=== PATIENT | female | born 1980 | race Caucasian/White ===

== ENCOUNTER 2017-01-07 05:56 | Inpatient (IN) ==
[2017-01-07] MEDS ORDERED: LIDOCAINE 1% (10mg/ml) 2mL INJ PF SDV ID PRN (06:04)
[2017-01-07] MEDS ORDERED: METHYLERGONOVINE 0.2 MG/ML INJECTION IM PRN (06:04)
[2017-01-07] MEDS ORDERED: MAG-AL + SIM ORAL LIQUID 30ml PO PRN (06:04)
[2017-01-07] MEDS ORDERED: D5LR 1,000 ML IV PRN ×2 (06:04→06:08)
[2017-01-07] MEDS ORDERED: CALCIUM CARBONATE Chewable 500mg TABLET PO PRN ×2 (06:04→15:43)
[2017-01-07] MEDS ORDERED: CARBOPROST 250 MCG/ML INJECTION IM PRN (06:04)
[2017-01-07] MEDS ORDERED: ACETAMINOPHEN 500 MG TABLET PO PRN ×2 (06:04→15:43)
[2017-01-07] MEDS ORDERED: OXYTOCIN DRIP 30 UNIT/500 ML ML IV PRN (06:08)
[2017-01-07 06:39] VITALS: BMI 30.2
[2017-01-07] MEDS: LR 1,000 ML IV PRN ×2 (07:18→13:40)
--- NOTE | 2017-01-07 09:41 | Anesthesia Preoperative Report ---
Anesthesia Epidural/Spinal Rec - Date and Time Date: 01/07/17 Preoperative Diagnosis: induction Procedure: Labor Epidural Plan: Epidural - Vital Signs Vital Signs: Temperature 98.7 F 01/07/17 06:39 Pulse Rate 71 01/07/17 06:39 Respiratory Rate 16 01/07/17 06:39 Blood Pressure 123/81 01/07/17 06:39 Pulse Oximetry 97 01/07/17 06:39 /Para: P:3 - Medictaions & Allergies Inpatient Medications: Current Medications Acetaminophen (Tylenol) 500 - 1,000 mg PO Q4H PRN PRN Reason: Pain Al Hydroxide/Mg Hydroxide (Maalox Plus) 30 ml PO Q3H PRN PRN Reason: Indigestion Calcium Carbonate (Tums) 500 - 1,000 mg PO Q2H PRN PRN Reason: Indigestion Last Admin: 01/07/17 07:54 Dose: 1,000 mg Carboprost Tromethamine (Hemabate) 250 mcg IM O PRN PRN Reason: .Downtime Dextrose/Lactated Ringer's (Dextrose 5%-Lactated Ringers) 1,000 mls @ 125 mls/ hr IV .Q8H PRN PRN Reason: Labor Last Admin: 01/07/17 07:00 Dose: 125 mls/hr Lactated Ringer's (Lactated Ringers) 1,000 mls @ 999 mls/hr IV .Q1H1M PRN Last Admin: 01/07/17 07:18 Dose: 999 mls/hr Oxytocin (Pitocin Drip) 30 unit in 500 mls @ 2 mls/hr IV .Q24H PRN; Protocol PRN Reason: Induction/Augmentation Last Admin: 01/07/17 07:00 Dose: 2 mls/hr Dextrose/Lactated Ringer's (Dextrose 5%-Lactated Ringers) 1,000 mls @ 125 mls/ hr IV .Q8H PRN PRN Reason: Labor Lidocaine HCl (Xylocaine-Mpf 1% Vial) 0.2 mg ID O PRN PRN Reason: IV Start Methylergonovine Maleate (Methergine) 0.2 mg IM O PRN Misoprostol (Cytotec) 800 mcg IL ONCE PRN Allergies/Adverse Reactions: Allergies Allergy/AdvReac Type Severity Reaction Status Date / Time No Known Drug Allergies Allergy Unknown Verified 01/01/17 13:17 - Home Medications Home Medications: Home Medications Medication Instructions Recorded Confirmed Type Acetaminophen 1,000 mg PO Q8H PRN #0 11/24/15 12/31/16 History DiphenhydrAMINE [Benadryl] 1 cap PO Q6H 12/31/16 12/31/16 History Multivitamin [One Daily] 1 tab PO DAILY 12/31/16 12/31/16 History - Medical History Cardiovascular: Reports: Heart Murmur - Surgical History Anesthesia Reactions: None Hx Family Anesthesia Reaction: No History of Motion Sickness: No - Social History Smoking Status: Current every day smoker Packs per day: 0.5 Pack-years: 15 Substance Use Type: does not use (denies) - Pertinent Findings Lab Data: CBC and BMP 01/07/17 06:29 EKG Rhythm: Normal Sinus Rhythm - Physical Exam Respiratory Exam: lungs clear Cardiovascular Exam: regular rate and rhythm, systolic murmur - Airway Assessment Mallampati Score: III TMD: 3 Fingerbreadths Neck Extension: good Teeth: chipped teeth/crowns Overall Assessment: may be difficult intubation - ASA ASA Score: 2 - Discussion Discussion: Discussed risks/options/alternatives of anesthesia and questions answered. Patient consents. Nursing pain assessment noted. Anesthesia Discussion: friend Attestation Statement: Prior to the delivery of any anesthetic medication, I examined the patient, developed the plan, obtained the patient's consent and discussed the risk and benefits of the procedure with the patient/guardian.
[2017-01-07] MEDS ORDERED: ROPIVACAINE 1% 10MG/ML INJ 200 MG, SUFentanil 50 MCG in NS 100 ML EPI PRN (12:23)
[2017-01-07] MEDS ORDERED: ONDANSETRON 4 MG/2 ML INJECTION IVP PRN (12:23)
[2017-01-07] MEDS ORDERED: NALOXONE 0.4 MG/ML INJECTION IVP PRN (12:23)
[2017-01-07] MEDS ORDERED: DiphenhydrAMINE 50 MG/ML INJECTION IVP PRN (12:23)
[2017-01-07] MEDS ORDERED: CEFAZOLIN 2 G in NS 100 ML IV ONE (13:35)
[2017-01-07] MEDS ORDERED: OXYTOCIN BOLUS BAG 30 UNIT/500 ML ML IV SCH (14:15)
[2017-01-07] MEDS ORDERED: ONDANSETRON 4 MG/2 ML INJECTION ONE (14:17)
[2017-01-07] MEDS ORDERED: DEXAMETHASONE 4 MG/ML INJECTION ONE (14:21)
[2017-01-07] MEDS ORDERED: DiphenhydrAMINE 25 MG CAPSULE PO PRN (15:43)
[2017-01-07] MEDS ORDERED: METOCLOPRAMIDE 10mg/2ml INJECTION IVP PRN (15:43)
[2017-01-07] MEDS ORDERED: SALINE FLUSH 10ml SYRINGE IV PRN (15:43)
[2017-01-07] MEDS ORDERED: MORPHINE PCA 30 MG/30 ML SYRINGE IV PRN (15:43)
[2017-01-07] MEDS ORDERED: OXYTOCIN DRIP 30 UNIT/500 ML ML IV SCH (15:43)
[2017-01-07] MEDS ORDERED: SIMETHICONE 80 MG CHEWABLE TABLET PO PRN (15:43)
[2017-01-07] MEDS ORDERED: HYDROCORTISONE 2.5% CREAM 30gm RECTALLY PRN (15:43)
[2017-01-07] MEDS: IBUPROFEN 800 MG TABLET PO PRN (15:57)
[2017-01-07] MEDS: D5LR 1,000 ML IV SCH (18:30)
[2017-01-07] MEDS: SIMETHICONE 80 MG CHEWABLE TABLET PO SCH (20:46)
[2017-01-07] MEDS: HYDROCODONE/APAP 5mg/325mg TABLET PO PRN (20:46)
[2017-01-08] MEDS: HYDROCODONE/APAP 5mg/325mg TABLET PO PRN ×6 (00:36→21:34)
[2017-01-08] MEDS: IBUPROFEN 800 MG TABLET PO PRN ×3 (00:36→18:32)
[2017-01-08] MEDS: SIMETHICONE 80 MG CHEWABLE TABLET PO SCH ×5 (00:36→21:34)
[2017-01-08] MEDS: D5LR 1,000 ML IV SCH (03:31)
[2017-01-08] MEDS: DOCUSATE CALCIUM 240 MG CAPSULE PO SCH (08:40)
--- NOTE | 2017-01-08 11:05 | Anesthesia Postoperative Note ---
- Date and Time Date: 01/08/17 Time: 10:55 - Status Patient Participated in Evaluation: Patient Participated in Person Vital Signs: Temperature 98.0 F 01/08/17 10:46 Pulse Rate 58 L 01/08/17 10:46 Respiratory Rate 18 01/08/17 10:46 Blood Pressure 139/80 01/08/17 10:46 Pulse Oximetry 95 01/08/17 10:46 Respiratory Function: Airway Patent Cardiovascular Function: Regular Pulse Mental Status: Alert and Oriented Pain Intensity: 4 Complications During Recover: None Apparent - Follow-Up Instructions Instructions: Per Surgeon
--- NOTE | 2017-01-08 13:54 | Progress Note ---
DATE 01/08/2017 day #1 after an emergent section and tubal ligation. The patient is up and around and doing well. She is planning on adopting out the baby. Her vital signs are fine. We had an episode yesterday afternoon with greatly elevated systolics BP's but normal diastolics. This was fairly immediately postoperative and it just didn't make sense so I came over and personally evaluated her and with a manual cuff she had a normal blood pressure, so I think it was a blood pressure cuff issue and not necessarily of pain or preeclampsia issue. We did repeat lab postop yesterday but none today. She is doing well and she is progressing normally at this point in time. Questions were answered to her satisfaction. JAK
--- NOTE | 2017-01-08 18:47 | OB/GYN Progress Note ---
OB-Progress Note Free Text - Date Date: 01/08/17 - Progress Note Progress Note: doing ok vss af q&a-krb
[2017-01-09 00:08] VITALS: RESP 16
[2017-01-09] MEDS: HYDROCODONE/APAP 5mg/325mg TABLET PO PRN ×3 (03:25→11:52)
--- NOTE | 2017-01-09 07:29 | Operative Note ---
DATE OF SURGERY: 01/07/2017 PREOPERATIVE DIAGNOSES 1. 36-year-old white female, G10, P3, at 39.1 weeks gestational age. 2. Pitocin induction of labor at term for unstable lie. 3. Artificial rupture of membranes. 4. Direct monitor. 5. Nonreassuring heart tones. POSTOPERATIVE DIAGNOSES 1. Occiput-posterior presentation. 2. Nuchal cord x 1 - tight. 3. Female infant 3034 g, 8/9 Apgars ([place]) - adopting out. PROCEDURE: Emergent low transverse section and modified Phoebe tubal ligation. EBL: 800 ml. ANESTHESIA: Epidural catheter dosing. SURGEON: Lio Andersen MD DIRECTOR CENTER: Car Rodas DO BRIEF HISTORY: Direct monitor was placed because of heart tone issues. Deep decelerations and lates were noted and therefore a decision for was made. DESCRIPTION OF PROCEDURE After adequate epidural anesthesia, the patient was prepped and draped in the left lateral decubitus position. A Pfannenstiel skin incision was made with a sharp knife and carried down the fascia, which was incised transversely with the Hammonds scissors. The rectus fascia was bluntly and sharply dissected off the rectus muscle. The rectus muscle was divided, and the peritoneum was isolated, elevated, entered with the Metzenbaum scissors and extended cephalad and caudad. The bladder blade was then inserted. The lower vesicouterine fold of the peritoneum was isolated and incised transversely. The bladder was bluntly dissected off the lower uterine segment. The bladder blade was reinserted. Then using a sharp knife, a transverse incision was made in the lower uterine segment. This was extended with my fingers. Female infant was delivered from the vertex position. Upon entering the uterus , was in the OP presentation and there was a cord wrapped around the neck like one might loop a stethoscope over the neck. It was tight. The head was elevated and delivered and the cord was untangled and then the infant was bulb suctioned after delivery of the head and then again after delivery of the body. was received by Dr. Bhupinder Yarbrough of Pediatrics. The placenta was expressed manually and was intact. The uterus was then allowed to fall upon the external abdominal wall. The endometrial cavity was cleansed using moist lap sponges. The uterus was closed using 0-Monocryl in a running locking fashion. Hemostasis was confirmed. The bladder flap was then reapproximated with the visceral peritoneum using 3-0 Vicryl in a running nonlocking fashion. The posterior cul-de-sac was cleansed of old blood clots and the tubes and ovaries were examined and found to be normal in size, shape and appearance. Our attention was then turned to tubal ligation. The right fallopian tube was isolated and then a mid-isthmic portion of the tube was grasped with the [place] clamp, elevated and then a knuckle of the tube was ligated using 2-0 chromic. A Padmaja clamp was passed through the meso of the tube and then the proximal and distal aspects of the knuckle of the tube were ligated using 2-0 silk. The knuckle of the tube was excised and sent to surgical pathology for lumen confirmation. This procedure was then repeated on the left side and hemostasis was confirmed. After hemostasis was again confirmed, the uterus was then carefully returned to the abdominal cavity. The abdomen was then closed in layers. The peritoneum was closed using 2-0 Vicryl in running nonlocking fashion. The fascia was closed using 0-Vicryl in a running nonlocking fashion bilaterally from the lateral aspects medially. Hemostasis was achieved with the subcutaneous tissue and then the skin was closed using wide brittany in a serial fashion. The patient tolerated the procedure well and went to the recovery room in stable condition. Pad, sponge and needle counts were correct and urine postop was clear and free flowing. MTDD
[2017-01-09] MEDS: IBUPROFEN 800 MG TABLET PO PRN (07:45)
--- NOTE | 2017-01-09 08:12 | Discharge Instructions ---
Discharge Plan - Med Rec/Dispo Prescriptions: New Hydrocodone/APAP 5/325 [[place] 5/325] 1 - 2 tab PO Q4H PRN #35 tab PRN Reason: Pain Ibuprofen [Motrin] 800 mg PO Q8H PRN #50 tab PRN Reason: Pain No Action Acetaminophen 1,000 mg PO Q8H PRN #0 PRN Reason: PAIN DiphenhydrAMINE [Benadryl] 1 cap PO Q6H Multivitamin [One Daily] 1 tab PO DAILY Discharge Instructions/Outpatient Orders: Provider Discharge Instructions Location: Determined By Patient - Disposition 01 Discharged Home, Self-Care
--- NOTE | 2017-01-09 08:15 | OB/GYN Progress Note ---
OB-PP Progress Note - General POD:: POD2 - Subjective Date: 01/09/17 Lochia: Minimal Pain: contolled Voiding: voiding Nausea or Vomiting Present: No - Objective Vital Signs: Last Vital Signs Temp 97.5 F 01/09/17 03:25 Pulse 76 01/09/17 03:25 Resp 16 01/09/17 03:25 BP 142/82 H 01/09/17 03:25 Pulse Ox 96 01/09/17 03:25 Urine Output: good General: alert and oriented Abdomen: fundus firm Incision: clean (brittany in place.) Extremities: non-tender Edema: none - Assessment Assessment: Repeat C/S - Plan Plan: discharge home
[2017-01-09] MEDS: DOCUSATE CALCIUM 240 MG CAPSULE PO SCH (09:55)
[2017-01-09] MEDS: SIMETHICONE 80 MG CHEWABLE TABLET PO SCH (11:54)
[2017-01-09 12:47] VITALS: BP 132/81; PULSE 67; TEMP 98.1; O2SAT 96
== END 2017-01-09 12:45 | disposition home or self-care (01) | DRG 766 ==
LOC: MC 05:56 → MERGE 06:00 → MC 14:41
PROVIDERS: ADMIT Obstetrics & Gynecology; ATTEND Obstetrics & Gynecology

== ENCOUNTER 2017-01-12 11:09 | Observation (INO) ==
--- NOTE | 2017-01-12 12:09 | Emergency Department Report ---
General Adult HPI - General Chief complaint: Recheck/Abnormal Lab/Rx Stated complaint: needs brittany removed Time Seen by Provider: 01/12/17 11:14 Source: patient Mode of arrival: ambulatory Limitations: no limitations - History of Present Illness HPI narrative: 36-year-old female presents to the emergency department with a chief complaint of needing the brittany removed from her incision which was performed 6 days ago. Patient had contacted Dr. Ramirez earlier in the day and he advised her to come to maternal child so he could evaluate the incision but patient did not come to maternal child to be evaluated by him as she could not find a ride to the hospital. Patient notes moderate discomfort locally at the site of incision only. Discomfort is dull without radiation. She denies any complications with the procedure. She was at home when her symptoms began. Symptoms been persistent in nature since onset. She does not note any exacerbating or remitting factors. Patient is requesting to have the sutures removed. - Related Data Previous Rx's Medication Instructions Recorded Hydrocodone/APAP 5/325 [[place] 1 - 2 tab PO Q4H PRN #35 tab 01/09/17 5/325] Ibuprofen [Motrin] 800 mg PO Q8H PRN #50 tab 01/09/17 Allergies Allergy/AdvReac Type Severity Reaction Status Date / Time No Known Drug Allergies Allergy Unknown Verified 01/12/17 11:23 Review of Systems Constitutional: Denies: fever, chills Eyes: Denies: eye pain, vision change ENT: Denies: ear pain, throat pain Cardiovascular: Denies: chest pain, palpitations Respiratory: Denies: cough, dyspnea Gastrointestinal: Reports: abdominal pain. Denies: nausea, vomiting, diarrhea Genitourinary: Denies: urgency, dysuria Musculoskeletal: Denies: back pain, arthralgia Integumentary: Denies: erythema, rash Neurological: Denies: headache, numbness Psychiatric: Denies: anxiety, depression Endocrine: Denies: fatigue, heat or cold intolerance Hematological/Lymphatic: Denies: easy bleeding, easy bruising Allergic/Immunologic: Denies: facial swelling, urticaria PFSH Patient Stated Medical History Migraine Yes Dental Problems Yes: gum disease Heart Murmur Yes Gastroesophageal Reflux Yes: when Disease Hx Urinary Tract Infection Yes: frequent UTIs Anemia Yes Herpes No Human Immunodeficiency Virus ( No HIV) Other Infectious Yes: 12/30/16 trichamonas Obsessive Compulsive Disorder Yes: no meds Abnormal Pap Yes: after all deliveries Maternal Gestational Diabetes Yes: with second Now No Surgical History: Family History: Reviewed and noncontributory. - Social History Smoking status: Current every day smoker Substance use type: does not use Alcohol intake frequency: does not drink Physical Exam - Limitations Limitations: no limitations - General General appearance: alert, in no apparent distress - Normal Exams: Head:: Normocephalic without trauma Eyes:: Pupils are PERRLA w/ EOMI, No scleral icterus, irritation, or foreign bodies noted ENMT:: No facial trauma, nasal exudates, pharyngeal erythema, or exudates are noted Dental: No fractured, loose, or missing teeth noted Neck:: Full range of motion, without adenopathy, JVD, bruits or thyromegaly Chest/Respirations:: Clear all cook, with good airflow, and symmetry bilaterally Cardiovascular:: Regular rate and rhythm, without murmur or gallop, Pulses 2+ all extremities, capillary refill, <2 seconds all extremities Abdomen:: Bowel sounds positive, non-distended, no hepatosplenomegaly, masses or bruits noted (Soft. Tender to palpation locally along the incision only. Surgical incision is intact with brittany. Clean and dry. No cellulitis. No sign of abscess. No rebound or guarding. No CVA tenderness.) Lymphatic:: No lymphadenopathy, or lymphedema noted Musculoskeletal:: No tenderness, or deformity noted, good range of motion, all extremities Integumentary:: No rashes, hives, or bruising noted, hair and nails, without abnormality (left upper extremity small area of hard and slightly erythematous tissue overlying IV insertion site consistent with superficial thrombophlebitis. No sign of infection.) Neurological:: Patient is alert, and oriented, cranial nerves, motor/sensory/ cerebellar, exams w/o gross deficits, to observation Psychiatric:: Patient exhibits, appropriate attention, emotion and affect Course Vital Signs Temperature 98.4 F 01/12/17 11:15 Pulse Rate 74 01/12/17 11:15 Respiratory Rate 20 01/12/17 11:15 Blood Pressure 189/104 H 01/12/17 11:15 Pulse Oximetry 96 01/12/17 11:15 Temperature 98 F 01/13/17 05:30 Pulse Rate 76 01/13/17 11:50 Respiratory Rate 16 01/13/17 11:50 Blood Pressure 144/81 H 01/13/17 11:50 Pulse Oximetry 100 01/13/17 11:50 Medical Decision Making - [facility] Narrative Medical decision making narrative: Labs/imaging were discussed in detail with the patient and questions are answered. Patient is given gentle IV hydration. Patient is given parental narcotic and antiemetic medications intravenously with improvement of symptoms. Patient is discussed with VACUUM CLEANER OPERATOR on-call Dr. Car Ramirez due to the concern for elevated blood pressure and patient's request for staple removal. Patient's blood pressure remains elevated during her emergency department stay. Dr. Ramirez recommends admission for observation even though the patient's urine is negative for protein and she has no swelling of her extremities or facial region. Due to the recent delivery Dr. ramirez will initiate magnesium therapy for the patient which he is ordering and will follow. Patient is admitted to the service of Dr. Ramirez in improved condition. Patient is in agreement with the current plan of management. No further orders from accepting physician who is in agreement with the current plan of management. - Differential Diagnosis postoperative infection, abscess, staple removal, HTN - Lab Data Result diagrams: 01/13/17 03:32 01/13/17 03:32 Lab Results 01/12/17 01/12/17 01/12/17 Range/Units 12:50 12:50 13:11 WBC 11.9 H (4.5-11.0) T/MM3 RBC 4.38 (4.00-5.20) M/MM3 Hgb 12.8 (12-16) GM/DL Hct 39.7 (36-46) % MCV 90.6 (80-100) UM3 MCH 29.2 (26-34) UUG MCHC 32.2 (31-37) GM/DL RDW Std Deviation 46.0 (36.9-50.2) FL Plt Count 146 D (130-400) T/MM3 MPV 11.3 (9.4-12.4) UM3 Immature Gran % (Auto) 0.2 (0.0-0.5) % Neut % (Auto) 70.5 H (33-66) % Lymph % (Auto) 22.0 L (23-45) % [place] % (Auto) 5.4 (0-9.0) % Eos % (Auto) 1.7 (0-4) % Baso % (Auto) 0.2 (0-2) % Neut # (Auto) 8.4 H (1.8-7.7) T/MM3 Lymph # (Auto) 2.6 (1-4.8) T/MM3 [place] # (Auto) 0.6 (0-0.8) T/MM3 Eos # (Auto) 0.2 (0-0.5) T/MM3 Baso # (Auto) 0.0 (0-0.2) T/MM3 Abs Immat Gran (auto) 0.02 (0.00-0.03) T/MM3 Turbidity < 20 (0-20) Sodium 143 (134-144) MEQ/L Potassium 4.5 (3.6-5) MEQ/L Chloride 110 H (98-107) MEQ/L Carbon Dioxide 24 (22-30) MEQ/L Anion Gap 9 (5-15) MEQ/L BUN 10.0 (7-17) MG/DL Creatinine 0.7 (0.7-1.2) MG/DL GFR Calculation 96 BUN/Creatinine Ratio 14 (6-26) RATIO Glucose 86 (65-110) MG/DL Calculated Osmolality 273 (261-280) MOSM/KG Calcium 9.6 (8.4-10.2) MG/DL Total Bilirubin 0.20 (0.20-1.30) MG/DL Icterus Index < 2 (0-7) AST 24 (14-36) U/L ALT 27 (9-52) U/L Alkaline Phosphatase 125 (38-126) U/L Total Protein 7.8 (6.3-8.2) G/DL Albumin 3.9 (3.5-5.0) G/DL Globulin 3.9 H (2.4-3.6) G/DL Albumin/Globulin Ratio 1.0 L (1.1-2.2) RATIO Lipase 51 (23-300) U/L Specimen Hemolysis < 15 (0-25) Ur Collection Type Urine, clean catch Urine Color Yellow (YELLOW) Urine Clarity Clear Urine pH 7.0 (5.0-8.0) Ur Specific [place] 1.010 L (1.015-1.025) Urine Protein Negative (NEGATIVE) Urine Glucose (UA) Negative (NEGATIVE) Urine Ketones Negative (NEGATIVE) Urine Occult Blood 2+ A (NEGATIVE) Urine Nitrate Negative (NEGATIVE) Urine Bilirubin Negative (NEGATIVE) Urine Urobilinogen 0.2 (NORMAL) EU/DL Ur Leukocyte Esterase Negative (NEGATIVE) Urine RBC 1-3 (0-3) /HPF Urine WBC 0-1 (0-5) /HPF Ur Squamous Epith Cells 0-5 Urine Bacteria Trace H (NEGATIVE) Ur Culture Indicated? Cult not indicated - Radiology Data CT abdomen/pelvis: Post operative changes consistent with section. No other acute processes. Duplex ultrasound left upper extremity: Negative for DVT. Superficial thrombophlebitis noted. Disposition Clinical Impression: Encounter for wound re-check Disposition: 02 To [facility] Condition: Improved Time of Disposition: 13:30 (admit. Dr. Ramirez. ) - Seen By: physician
[2017-01-12] MEDS ORDERED: FentaNYL 100 MCG/2 ML INJECTION IVP ONE (14:06)
[2017-01-12] MEDS ORDERED: ONDANSETRON 4 MG/2 ML INJECTION IVP ONE (14:07)
[2017-01-12] MEDS: SALINE FLUSH 10ml SYRINGE IVF PRN (14:50)
[2017-01-12] MEDS ORDERED: MAGNESIUM SULFATE 6gm PREMIX 6 GM/50 ML BAG IV ONE (15:37)
[2017-01-12] MEDS: DOCUSATE SODIUM 100 MG CAPSULE PO SCH (15:55)
[2017-01-12] MEDS: MAGNESIUM SULFATE DRIP 20 GM/500 ML BAG IV SCH (15:57)
[2017-01-12] MEDS: NICOTINE 21 MG PATCH TD SCH (16:01)
[2017-01-12] MEDS: POLYETHYL GLYCOL 3350 17gm PACKET PO SCH (16:08)
[2017-01-12] MEDS ORDERED: HYDROCODONE/APAP 5mg/325mg TABLET PO PRN (16:09)
[2017-01-12] MEDS ORDERED: ACETAMINOPHEN 325 MG TABLET PO PRN ×2 (16:09→23:51)
[2017-01-12] MEDS ORDERED: DiphenhydrAMINE 25 MG CAPSULE PO PRN (16:16)
[2017-01-12] MEDS ORDERED: CALCIUM CARBONATE Chewable 500mg TABLET PO ONE (16:18)
[2017-01-12 16:41] VITALS: BMI 28.1
[2017-01-12] MEDS ORDERED: ACETAMINOPHEN 500 MG TABLET PO PRN (17:28)
[2017-01-12] MEDS: Oxycodone/Acetaminophen 5/325 1 TAB PO PRN (20:45)
[2017-01-13] MEDS: SALINE FLUSH 10ml SYRINGE IVF PRN (01:59)
[2017-01-13] MEDS: MAGNESIUM SULFATE DRIP 20 GM/500 ML BAG IV SCH ×2 (02:00→12:18)
[2017-01-13] MEDS: Oxycodone/Acetaminophen 5/325 1 TAB PO PRN ×2 (05:44→13:42)
--- NOTE | 2017-01-13 07:56 | Ultrasound Report ---
EXAM: US venous doppler UE LT LOCATION OF DICTATION: [place] HISTORY: LUE Thrombophlebitis COMPARISON: No prior studies available for comparison. FINDINGS: There is no evidence for acute deep venous thrombosis in the left arm. The left internal jugular, subclavian, axillary and paired brachial veins were evaluated; compression and augmentation were applied where possible. Thrombophlebitis is demonstrated within a superficial vein in the left forearm. There is no evidence of thrombus in the basilic or cephalic veins. In addition, color and pulsed Doppler demonstrate appropriate spontaneous flow, cardiac pulsatility and variation with respiration. IMPRESSION: No evidence of acute DVT in the left upper extremity. Superficial Thrombophlebitis noted within a superficial femoral vein in the left forearm. .
--- NOTE | 2017-01-13 08:24 | CT Scan Report ---
EXAM: CT abdomen pelvis without contrast DATE: 01/13/2017 LOCATION OF DICTATION: [place] HISTORY: Abdominal pain, tenderness. History of and and tubal ligation, 01/07/2017. COMPARISON: No prior studies are available for comparison TECHNIQUE: Multiple contiguous axial images were obtained of the abdomen and pelvis without contrast. Coronal and sagittal reformations were utilized. Automated Exposure Control and Iterative Reconstruction dose reducing techniques were utilized. PROCEDURE: Axial images were obtained throughout the entire abdomen and pelvis without contrast administration. FINDINGS: CT ABDOMEN LUNG BASES: There is linear atelectasis within the lung bases. LIVER: Unremarkable. SPLEEN: Unremarkable. GALLBLADDER: Unremarkable. PANCREAS: Unremarkable. ADRENAL GLANDS: Unremarkable. KIDNEYS: Unremarkable. AORTA: Unremarkable. LYMPH NODES: Unremarkable. STOMACH BOWEL LOOPS: Unremarkable. PERITONEAL CAVITY/SOFT TISSUES: There is no abdominal or pelvic inflammatory mass or ascites. Postoperative changes within the anterior abdominal wall. CT PELVIS URINARY BLADDER: Unremarkable. UTERUS/OVARIES: Gravid uterus is noted. There are probable blood products within the endometrial canal. OSSEOUS STRUCTURES: Unremarkable. IMPRESSION: 1. Postoperative changes associated with recent section with probable residual blood products in the endometrial canal. No clear evidence for endometritis. 2. No abnormal pelvic fluid collections or drainable abscess. 3. Postoperative changes within the anterior abdominal wall. .
--- NOTE | 2017-01-13 09:04 | OB/GYN History & Physical ---
- History of Present Illness Date of Admission: 01/12/17 15:24 Reason for Admission: other History of Present Illness: 36 y/o female s/p C/S PPD 37 presented to L&D with new onset of mild abdominal pain with redness at staple sites on incision. During her evaluation in the ED she was noted to have severe blood pressure. Her dangling BPs where all elevated in severe range. She denied WOO, Vision changes, RUQ pain in ED. Her laboratory was wnl with exception of Thrombocytopenia that was improved from her last platelet count. Pt denied F/C, N/V, Diarrhea. She complained of constipation but was tolerating regular diet. : 10 Review of Systems - Review of Systems All systems: reviewed and no additional remarkable complaints except as stated PFSH Patient Stated Medical History Migraine Yes Dental Problems Yes: gum disease Heart Murmur Yes Gastroesophageal Reflux Yes: when Disease Hx Urinary Tract Infection Yes: frequent UTIs Anemia Yes Other Infectious Yes: 12/30/16 trichamonas Obsessive Compulsive Disorder Yes: no meds Abnormal Pap Yes: after all deliveries Maternal Gestational Diabetes Yes: with second Now No - Social History Smoking status: Current every day smoker Time spent discussing smoking cessation with patient: 3 to 10 minutes Substance use type: does not use Alcohol intake frequency: does not drink Medications Allergies Allergy/AdvReac Type Severity Reaction Status Date / Time No Known Drug Allergies Allergy Unknown Verified 01/12/17 11:23 POLICE COMMUNICATIONS DISPATCHER Exam Vital signs: Temperature 98 F 01/13/17 05:30 Pulse Rate 86 01/13/17 08:30 Respiratory Rate 15 01/13/17 08:30 Blood Pressure 128/83 01/13/17 08:30 Pulse Oximetry 100 01/13/17 08:30 - Constitutional Present: no acute distress - Routine Neck Exam Present: supple, JVD - Routine Respiratory Exam Comments: Non labored - Routine Cardiovascular Exam Present: RRR - Routine Abdominal Exam Present: soft, non distended Comments: Inc C/D/I - Routine Extremities Exam Extremities: Present: edema - Routine Neurological Exam Present: alert, oriented X3 - Routine Skin Exam Present: intact - Routine Psychiatric Exam Present: normal affect POLICE COMMUNICATIONS DISPATCHER Results - Labs CBC & Chem 7: 01/13/17 03:32 01/13/17 03:32 Labs: UA Ur Collection Type Urine, clean catch 01/12/17 13:11 Urine Color Yellow (YELLOW) 01/12/17 13:11 Urine pH 7.0 (5.0-8.0) 01/12/17 13:11 Ur Specific [place] 1.010 (1.015-1.025) L 01/12/17 13:11 Urine Protein Negative (NEGATIVE) 01/12/17 13:11 Urine Glucose (UA) Negative (NEGATIVE) 01/12/17 13:11 Urine Ketones Negative (NEGATIVE) 01/12/17 13:11 Urine Occult Blood 2+ (NEGATIVE) A 01/12/17 13:11 Urine Nitrate Negative (NEGATIVE) 01/12/17 13:11 Urine Bilirubin Negative (NEGATIVE) 01/12/17 13:11 Urine Urobilinogen 0.2 EU/DL (NORMAL) 01/12/17 13:11 Ur Leukocyte Esterase Negative (NEGATIVE) 01/12/17 13:11 Assessment and Plan (1) Preeclampsia Problem details: MGSO4 x 24 hours, Lab q 12 hours while on Mag. No NSAIDs until after 6 weeks PP. With dismissal from Hospital f/u bp check 10 days. Current visit: Yes Status: Acute (2) Constipation Problem details: Start Bowel regimine Current visit: Yes Status: Acute
[2017-01-13] MEDS: NICOTINE 21 MG PATCH TD SCH (12:05)
[2017-01-13] MEDS: POLYETHYL GLYCOL 3350 17gm PACKET PO SCH (12:05)
[2017-01-13] MEDS: DOCUSATE SODIUM 100 MG CAPSULE PO SCH (12:07)
[2017-01-13] MEDS ORDERED: NICOTINE PATCH REMOVAL TD SCH (16:00)
--- NOTE | 2017-01-13 16:24 | Discharge Summary ---
DC Information/Hospital Course Date of admission: 01/12/17 15:24 Attending Physician: Lio Andersen MD (1) Preeclampsia Status: Acute Problem details: MGSO4 x 24 hours, Lab q 12 hours while on Mag. No NSAIDs until after 6 weeks PP. With dismissal from Hospital f/u bp check 10 days. (2) Constipation Status: Acute Problem details: Start Bowel regimine - Hospital Course Hospital Course: 01/13/17 16:21 Pt was admitted and started on MGSO4. She diuresed throughout her stay. She never required IV blood pressure medication. Her brittany where removed and her abdominal discomfort improved. Lab remained stable during her stay. MGSO4 for preeclampsia with severe features Laboratory: Labs from last 24 hours 01/13/17 01/13/17 01/13/17 15:34 15:34 03:32 WBC 12.6 H RBC 4.62 Hgb 13.6 Hct 41.6 MCV 90.0 MCH 29.4 MCHC 32.7 RDW Std Deviation 47.1 Plt Count 171 MPV 10.7 Immature Gran % (Auto) 0.2 Neut % (Auto) 72.6 H Lymph % (Auto) 19.1 L Gaines % (Auto) 6.5 Eos % (Auto) 1.4 Baso % (Auto) 0.2 Neut # (Auto) 9.1 H Lymph # (Auto) 2.4 Gaines # (Auto) 0.8 Eos # (Auto) 0.2 Baso # (Auto) 0.0 Abs Immat Gran (auto) 0.03 Turbidity < 20 < 20 Sodium 137 139 Potassium 4.1 3.8 Chloride 104 103 D Carbon Dioxide 23 D 17 L Anion Gap 10 19 H BUN 9.0 9.0 Creatinine 0.6 L 0.6 L GFR Calculation 114 114 BUN/Creatinine Ratio 15 15 Glucose 105 90 Calculated Osmolality 263 267 Calcium 7.3 L D 8.2 L D Magnesium Total Bilirubin 0.20 0.30 Icterus Index < 2 < 2 AST 22 28 ALT 28 28 Alkaline Phosphatase 129 H 143 H Total Protein 8.1 8.5 H Albumin 4.1 4.4 Globulin 4.0 H 4.1 H Albumin/Globulin Ratio 1.0 L 1.1 Specimen Hemolysis < 15 33 H Urine Protein Urine Collection Time Urine Total Volume Ur Total Protein 24 Hr 01/13/17 01/13/17 01/12/17 03:32 01:12 15:30 WBC 11.0 RBC 4.63 Hgb 13.5 Hct 42.1 MCV 90.9 MCH 29.2 MCHC 32.1 RDW Std Deviation 47.3 Plt Count 168 MPV 11.4 Immature Gran % (Auto) 0.2 Neut % (Auto) 66.3 H Lymph % (Auto) 24.9 Gaines % (Auto) 6.5 Eos % (Auto) 1.8 Baso % (Auto) 0.3 Neut # (Auto) 7.3 Lymph # (Auto) 2.7 Gaines # (Auto) 0.7 Eos # (Auto) 0.2 Baso # (Auto) 0.0 Abs Immat Gran (auto) 0.02 Turbidity Sodium Potassium Chloride Carbon Dioxide Anion Gap BUN Creatinine GFR Calculation BUN/Creatinine Ratio Glucose Calculated Osmolality Calcium Magnesium 4.8 H Total Bilirubin Icterus Index AST ALT Alkaline Phosphatase Total Protein Albumin Globulin Albumin/Globulin Ratio Specimen Hemolysis Urine Protein 27 Urine Collection Time 24 Urine Total Volume 4.450 Ur Total Protein 24 Hr 1201 H [employer] Exam Vital signs: Temperature 98.2 F 01/13/17 14:30 Pulse Rate 79 01/13/17 14:30 Respiratory Rate 18 01/13/17 14:30 Blood Pressure 136/82 01/13/17 14:30 Pulse Oximetry 99 01/13/17 14:30 - Constitutional Present: no acute distress - Routine Neck Exam Present: supple, JVD - Routine Cardiovascular Exam Present: RRR - Routine Abdominal Exam Present: soft, non distended - Routine Extremities Exam Extremities: Present: no edema - Routine Neurological Exam Present: alert, oriented X3 - Routine Psychiatric Exam Present: normal affect Discharge Plan - Med Rec/Dispo Referrals/Follow Up: Lio Andersen MD [Physician] - [place] Instructions: Delivery Additional Instructions: F/U domitila for INC check and BP check 01/22/17-01/23/17 Prescriptions: New Oxycodone/Acetaminophen 5/325 [Percocet 5/325] 1 - 2 tab PO Q4H PRN #30 tab PRN Reason: Pain PEG 3350 17gm PACKET [Miralax] 17 gm PO DAILY packet Discontinued Hydrocodone/APAP 5/325 [[place] 5/325] 1 - 2 tab PO Q4H PRN #35 tab PRN Reason: Pain Ibuprofen [Motrin] 800 mg PO Q8H PRN #50 tab PRN Reason: Pain - Disposition 01 Discharged Home, Self-Care
[2017-01-13 19:54] VITALS: BP 130/83; PULSE 69; RESP 16; TEMP 97.7; O2SAT 98
== END 2017-01-13 17:15 | disposition home or self-care (01) ==
LOC: ED 11:09 → MC 11:09
PROVIDERS: ADMIT Obstetrics & Gynecology; ATTEND Obstetrics & Gynecology